=== PATIENT | female | born 1970 | race Caucasian/White ===

== ENCOUNTER 2017-01-04 06:04 | Inpatient (IN) | payer BC ==
[~2017-01-04 06:04] MED LIST: Buffered Lidocaine 0.9% SYRIN* 5 ML/SYR SYRINGE INTRADERM ONE; Famotidine TAB* 20 MG PO ONE; Scopolamine 1.5 mg* PATCH TRANSDERM ONE; Sodium Citrate/Citric Acid* 15 ML UDC PO ONE
[2017-01-04] MEDS ORDERED: Heparin VIAL(*) 5000 UNITS/ML VIAL (FIVE THOUSAND) ONE (06:18)
[2017-01-04] MEDS ORDERED: Famotidine TAB* 20 MG ONE (06:18)
[2017-01-04] MEDS ORDERED: Scopolamine 1.5 mg* PATCH ONE (06:18)
[2017-01-04] MEDS ORDERED: Sodium Citrate/Citric Acid* 15 ML UDC ONE (06:18)
[2017-01-04] MEDS ORDERED: Buffered Lidocaine 0.9% SYRIN* 5 ML/SYR SYRINGE ONE (06:19)
[2017-01-04] MEDS ORDERED: Ciprofloxacin 400MG IVPREMIX(* 400 MG/200 ML BAG ONE (06:19)
[2017-01-04] MEDS ORDERED: Clindamycin 900 MG IVPREMIX(* 900 MG/50 ML SDV IV ONE (06:19)
[2017-01-04] MEDS ORDERED: Methylene Blue 0.5 %* 50 MG/10 ML AMP IV ONE (07:21)
[2017-01-04] MEDS ORDERED: Bupivacaine 0.25% SDV* 30 ML ONE ×2 (07:21→08:30)
[2017-01-04] MEDS ORDERED: fentaNYL* 50 MCG/ML 5 ML VIAL (250 MCG VIAL) ONE ×2 (07:49→10:21)
[2017-01-04] MEDS ORDERED: Ondansetron INJ* 2 MG/ML VIAL ONE (07:50)
[2017-01-04] MEDS ORDERED: Propofol* 10 MG/ML 20 ML BTL IV PUSH ONE (07:50)
[2017-01-04] MEDS ORDERED: Lidocaine 2% PF * 5 ML VIAL ONE (07:50)
[2017-01-04] MEDS ORDERED: Rocuronium* 10 MG/ML VIAL ONE (07:50)
[2017-01-04] MEDS ORDERED: Dexamethasone IV* 4 MG/ML 1 ML (4 MG) ONE (07:50)
[2017-01-04] MEDS ORDERED: Edrophonium Chloride* 10 MG/ML 15 ML VIAL ONE (11:12)
[2017-01-04] MEDS ORDERED: Ketorolac INJ* 30 MG/ML 1 ML VIAL ONE (11:12)
[2017-01-04] MEDS ORDERED: Atropine 1MG/ML INJ* 1 ML VIAL ONE (11:12)
[2017-01-04] MEDS ORDERED: Acetaminophen ADULT LIQ* 650 MG/20.3 ML UDC PO PRN (11:16)
[2017-01-04] MEDS ORDERED: diPHENhydraMINE IV* 50 MG/ML 1 ml VIAL (BENADRYL) SLOW PUSH PRN (11:16)
[2017-01-04] MEDS ORDERED: Ondansetron INJ* 2 MG/ML VIAL IV PRN (11:16)
[2017-01-04] MEDS ORDERED: HYDROcodone/ACET. 7.5/325 LIQ* 15 ML UDC PO PRN (11:16)
--- NOTE | 2017-01-04 11:22 | SURGPN ---
Brief Operative Note - Surgery Procedures: Procedures Pre-OP Diagnoses: Clinically severe obesity Post-op Diagnosis: same Procedure: Laparoscopic Cristóbal an Y gastric bypass Surgeon: Mukesh Asst: Bryon Tubbsthesia: RUTH Calvo EBL: minimal IVF: 1900cc LR Specimen: none Drains: none
[2017-01-04] MEDS ORDERED: DiMENhydriNATE IV* 50 MG/ML VIAL IV PUSH PRN (11:30)
[2017-01-04] MEDS ORDERED: HYDROmorphone INJ* 1 MG/ML CARPUJECT SYRINGE ONE (11:41)
[2017-01-04] MEDS ORDERED: fentaNYL* 50 MCG/ML 2 ML VIAL (100 MCG VIAL) ONE ×2 (11:41→12:09)
[2017-01-04] MEDS: fentaNYL* 50 MCG/ML 2 ML VIAL (100 MCG VIAL) IV PRN ×2 (11:42→12:05)
[2017-01-04] MEDS: HYDROmorphone INJ* 1 MG/ML CARPUJECT SYRINGE IV PRN ×5 (11:43→20:35)
[2017-01-04] MEDS: Heparin VIAL(*) 5000 UNITS/ML VIAL (FIVE THOUSAND) SUBCUT SCH ×2 (14:50→20:37)
[2017-01-04] MEDS: Ketorolac INJ* 30 MG/ML 1 ML VIAL IV PRN (18:35)
[2017-01-04] MEDS: Famotidine IV* 10 MG/ML 2 ML (20 mg) IV SLOW PU SCH (20:36)
[2017-01-05] MEDS: Ketorolac INJ* 30 MG/ML 1 ML VIAL IV PRN ×3 (01:20→22:09)
--- NOTE | 2017-01-05 03:33 | OP ---
CC: Juany Galvan NP * DATE OF OPERATION: 01/04/17 - ROOM #351 DATE OF : 66 SURGEON: Dr. Mayorga. SATELLITE TV TECHNICIAN: JULIO CESAR Slater ANESTHESIOLOGIST: Dr. Calvo. ANESTHESIA: General. PRE-OP DIAGNOSES: 1. Clinically severe obesity. 2. Obstructive sleep apnea. 3. Hypercholesterolemia. 4. Hypertension. POST-OP DIAGNOSES: 1. Clinically severe obesity. 2. Obstructive sleep apnea. 3. Hypercholesterolemia. 4. Hypertension. OPERATIVE PROCEDURE: Laparoscopic Cristóbal-en-Y gastric bypass. ESTIMATED BLOOD LOSS: Minimal. FLUIDS: 1900 cc of crystalloid fluid given. SPECIMENS: None. DRAINS: None. COUNT: Lap pad count and instrument count correct at the end of the procedure. DESCRIPTION OF PROCEDURE: The patient was identified in the preoperative area, brought to the OR, placed on the operating room table in a supine position. Preoperative antibiotics were given. Sequential devices were placed on bilateral lower extremities. General anesthesia was induced and a Doherty catheter was inserted. The patient's abdomen was prepped and draped in a standard surgical fashion and a time-out was performed. Folds of the umbilicus were elevated anteriorly and a Veress needle was inserted into the abdominal cavity which was then allowed to insufflate to a pressure 15 mmHg. The patient tolerated the insufflation well. A trocar was placed at the upper midline just left of midline and a camera was inserted through this. There was no evidence of injury from the trocar insertion or from the Veress needle which was then removed. Additional trocars were then placed in the following positions: a 12 and a 5 mm in the left upper quadrant, a 12 and a 5 mm in the right upper quadrant. Attention was turned towards the omentum, this was attempted to be reflected anteriorly. We identified adhesions in the pelvis, these were taken down with both sharp and blunt dissection as well as electrocautery until we could freely sweep the omentum anteriorly. This allowed us to identify the Ligament of Treitz after retracting the transverse colon anteriorly. From the Ligament of Treitz we counted approximately 40 cm off. This portion of the bowel easily went up towards the liver edge. The bowel was transected at this site. Enterotomy was made on the proximal portion that would become the biliopancreatic limb. Next, approximately 80 cm was counted off from this transected site. This will become the Cristóbal limb. An enterotomy was made and a jejunojejunostomy was created with a 60 mm alba JOSE stapling device. The common defect was reapproximated with 2-0 silk sutures in a [id number] fashion, and the mesenteric defect was similarly closed. Hemostasis was excellent and the closure appeared intact. Attention was then turned towards the stomach. The patient was placed in a steep reverse Trendelenburg. Kylee retractor was inserted through a subxiphoid incision and the liver was retracted anteriorly and to the right, we could see dibbling suggestive of a hiatal hernia. We retracted the fat pad towards the right lower quadrant and with blunt and sharp dissection we were able to expose the left wayne. The right wayne was also identified through the pars flaccida. The hernia appeared to be only fat pad. There was not any discrete mass. Next, at approximately the 3rd crossing vessel a retrogastric tunnel was made. A 45 mm alba JOSE stapling device was fired across this and we completed the gastric pouch with additional 16 mm JOSE stapling device, alba, with a second one which almost completed transected us through the portion of the fat pad and over a 36- Palau[place] OG tube we fired a last firing which was through this fat pad and through some stomach making sure to transect at the fundus. We utilized a 16-mm purple loaded JOSE stapling device with reinforcement. The pouch appeared intact, it was narrow, somewhat long, but only approximately 8 to 9 cm. Next, the Cristóbal limb was then brought in apposition to this. 2-0 silk sutures were utilized to tack the Cristóbal-limb to the gastric pouch. Once this was performed, we were able to make a gastrotomy over the 36 [place] Enriqueta tube and an enterotomy as well. The two were mated in the gastrojejunostomy using a 30- mm alba JOSE stapling device fired to the hub. We noted that the small bowel portion had a bigger incision and for this reason we closed the defect from small bowel to small bowel at this portion and then completed the closure of this anastomosis with small bowel to stomach. Again all this was done with 3-0 silk sutures in a [id number] fashion. Next, the Enriqueta tube was then inserted through the anastomosis and placed distally on the Cristóbal limb. The Cristóbal limb distal to this was clamped and methylene blue dye test was performed with a gauze behind the anastomosis, it showed no evidence of blue dye after dilating this. The blue dye was then removed. The OG tube had been backed into the stomach pouch during the testing of this. This was brought back a little further and 2 additional sutures were placed. There was a small area of the serosa that I wanted to suture, this was done with a U stitch, this was at the distal stomach. Again, it showed no leakage of blue dye and then we imbricated the small bowel portion of the closure of the common defect at this gastrojejunostomy. Once this was performed the Enriqueta tube was then inserted back through the anastomosis with ease. It appeared intact. Hemostasis was excellent. There was no tension on the Cristóbal limb. The OG tube was then removed in its entirety. The omentum was then brought up over the top of the anastomosis and the liver retractor was removed. The abdomen was allowed to collapse. Trocar was removed under direct vision and all 6 skin incisions were reapproximated with skin marlon followed by sterile dressings. Patient was woken up in the OR and transferred to the PACU in stable condition. [id number]/[facility] #: [id number] YAZMIN
[2017-01-05] MEDS: Heparin VIAL(*) 5000 UNITS/ML VIAL (FIVE THOUSAND) SUBCUT SCH ×3 (06:19→21:56)
--- NOTE | 2017-01-05 07:47 | PN ---
Progress Note - Progress Note Date of Service: 01/05/17 SOAP: Subjective: PT seen and examined. upper abdo pain relieved with narcotics. OOB. no nausea Objective: af vss uo good poor insp effort abdo: incisional tenderness dressing intact no calf tenderness Assessment: POD1 RYGB Plan: UGI OOB IVF pain control
--- NOTE | 2017-01-05 10:30 | RAD ---
CPT II Codes: 6045F INDICATION: Status post Cristóbal-en-Y gastric bypass. Fluoroscopic examination of the stomach was performed. Approximately 0.4 minutes of fluoroscopy time was used. Esophagus appears normal in anatomy and function. Patient status post gastric bypass surgery. No extraluminal contrast is noted. There is free flow of contrast into the small intestine. IMPRESSION: No extraluminal contrast is noted. No obstruction is noted.
[2017-01-05] MEDS: Famotidine IV* 10 MG/ML 2 ML (20 mg) IV SLOW PU SCH ×2 (10:48→21:56)
[2017-01-05] MEDS: D5W 1/2 NS KCl 20 Meq 1000 ML* 1,000 ML IV SCH ×2 (14:14→22:11)
[2017-01-06] MEDS: Heparin VIAL(*) 5000 UNITS/ML VIAL (FIVE THOUSAND) SUBCUT SCH (05:21)
[2017-01-06] MEDS: D5W 1/2 NS KCl 20 Meq 1000 ML* 1,000 ML IV SCH (06:12)
[2017-01-06 07:18] VITALS: BP 125/63
[2017-01-06] MEDS: Famotidine IV* 10 MG/ML 2 ML (20 mg) IV SLOW PU SCH (09:05)
--- NOTE | 2017-01-06 09:25 | PN ---
Progress Note - Progress Note Date of Service: 01/06/17 SOAP: Subjective: Patient seen and examined at bedside. Reports doing much better today. Tolerating clear liquids, denies any nausea or vomiting. Ambulatory and wishes to go home. She has no complaints. Objective: Awake and alert, sitting on bed, eating her breakfast. VSS, afebrile, no tachycardia Lungs CTA bilat. Heart RRR, no murmurs Abdomen soft, NT, ND. Dressings removed, incisions C/D/I. No ecchymosis or bleeding. No guarding or rebound. Ext. without edema Assessment: POD#2, s/p laparoscopic RYGB, doing very well. Plan: D/C IVF D/C to home today PPI and resume other meds, only Hyzzar to hold until seen by her PCP F/U next week as outpatient.
--- NOTE | 2017-01-07 03:27 | DS ---
CC: Juany Galvan NP * DISCHARGE SUMMARY: DATE OF ADMISSION: 01/04/17 DATE OF DISCHARGE: 01/06/17 PATIENT OF: Taiwo Mayorga MD ADMITTING PHYSICIAN: Taiwo Mayorga MD * (DICTATED BY JULIO CESAR JONES) ADMISSION DIAGNOSIS: Clinically severe obesity. DISCHARGE DIAGNOSIS: Clinically severe obesity. CONSULTATIONS: None. PROCEDURES: Laparoscopic Cristóbal-En-Y gastric bypass on 01/04/17. BRIEF MEDICAL HISTORY: Mr. Gaytan is a pleasant 46-year-old female, who was seen at the [facility] [place] to consider weight loss surgery. Patient suffered from excess body weight most of her adult life, leading to other comorbidities including sleep apnea and hypertension. She tried multiple dietary and exercise regimen that unfortunately failed to maintain her weight loss. She was found to be a good candidate to proceed with a gastric bypass surgery that was scheduled on a later date. HOSPITAL COURSE: The patient was admitted on 01/04/17 in anticipation for surgery. She was taken to the operating room that day where she underwent a laparoscopic Cristóbal-En-Y gastric bypass by Dr. Mayorga. After recovery, the patient was sent to the surgical floor for observation. She did extremely well with only mild incisional discomfort that was well tolerated using analgesics as needed. She had a followup upper GI on following morning that revealed no evidence of extraluminal contrast for which she started her bariatric stage 1 clear liquid diet. She was ambulatory out of bed and in stable condition. She tolerated her clear liquids very well and continued to improve clinically. On the second day postoperatively, the patient continued to improve and was ready to be discharged home. We went over her medication list and we will hold her Hyzaar for the time being until seen by her primary care physician, but she may continue her Norvasc as prescribed. She will also maintain her PPI coverage using Protonix b.i.d. as instructed. She would be followed up next week as an outpatient. DISCHARGE MEDICATIONS: Include: 1. Albuterol inhaler 108 mcg q. 6 hours as needed for shortness of breath. 2. Norvasc 10 mg p.o. daily. 3. Beclomethasone 80 mcg nasal spray as prescribed. 4. Vitamin D3 2000 units p.o. daily. 5. Nexium 20 mg p.o. b.i.d. 6. Estradiol 25 mg p.o. q. a.m. 7. Melissa 180 mg p.o. q. p.m. 8. Multiple vitamin chewable as instructed. PROBLEM LIST: Clinically severe obesity, status post laparoscopic Cristóbal-En-Y gastric bypass on 01/04/17. JULIO CESAR JONES [id number]/[facility] #: [id number] MTDD
[2017-01-07] MEDS ORDERED: Scopolamine PATCH Remove* 1 NOTE MISC PATCH OFF ONE (06:00)
== END 2017-01-06 11:38 | disposition home or self-care (01) | DRG 403 ==
LOC: AA 06:04 → SSU 14:25
PROVIDERS: ADMIT Surgery; ATTEND Surgery
PROC: 0D164ZA Bypass Stomach to Jejunum, Percutaneous Endoscopic Approach (ICD-10-PCS; principal; 2017-01-04 07:45)
DX: E66.01 Morbid (severe) obesity due to excess calories (principal); E78.00 Pure hypercholesterolemia, unspecified; I10 Essential (primary) hypertension; N39.3 Stress incontinence (female) (male); J45.909 Unspecified asthma, uncomplicated; F41.9 Anxiety disorder, unspecified; F32.9 Major depressive disorder, single episode, unspecified; G47.33 Obstructive sleep apnea (adult) (pediatric); K21.0 Gastro-esophageal reflux disease with esophagitis; K44.9 Diaphragmatic hernia without obstruction or gangrene; Z98.51 Tubal ligation status; Z82.49 Family history of ischemic heart disease and other diseases of the circulatory system; Z80.8 Family history of malignant neoplasm of other organs or systems; Z82.3 Family history of stroke; Z87.891 Personal history of nicotine dependence; Z88.2 Allergy status to sulfonamides; Z88.1 Allergy status to other antibiotic agents; Z88.0 Allergy status to penicillin; Z91.018 Allergy to other foods; Z68.38 Body mass index [BMI] 38.0-38.9, adult
CPT/HCPCS: 43775; 74246; 94760; A9270-GY; J0461; J0744; J1100; J1170; J1644; J1885; J2405; J2704; J3010

== ENCOUNTER 2018-02-09 12:35 | Emergency (ER) | payer OTHER ==
--- OUTSIDE RECORDS SUMMARY | 2018-02-09 12:39 | XMS REPORT | Continuity of Care Document ---
:1970 External Reference #:[id number] Author Name Covert, Phyllis Care Team Providers Name Role Phone Eddie Evangelista MD Primary Care Physician Unavailable Payers Type Date Identification Numbers Payment Provider Subscriber Policy Number: [id number] [employer] Jovani Lukas PayID: [id number] [address] [address] [place] [address] Expires: 2016 Policy Number: [id number] [employer] Ppo Jovani Lukas PayID: [id number] [address] [address] [place] [address] Advance Directives Type Date Description Status Comment Other Directive 11/07/2016 [facility] Care Proxy Current and Verified Problems Date Description Provider Status Onset: 11/07/2016 Gastroesophageal reflux disease Juany Galvan NP Active Onset: 12/01/2017 History of bariatric surgical Eddie Evangelista, Active procedure SEVERIANO Feldman Note: 12/23 Onset: 12/01/2017 Allergic asthma Eddie Evangelista M.D.,SEVERIANO Active Onset: 12/01/2017 Seasonal allergic rhinitis Eddie Evangelista M.D.,SEVERIANO Active Onset: 12/01/2017 Menopausal symptom Eddie Evangelista M.D.,SEVERIANO Active Onset: 12/01/2017 H/O: hysterectomy Eddie Evangelista M.D.,SEVERIANO Active Onset: 12/01/2017 Subtotal thyroidectomy Eddie Evangelista M.D.,SEEVRIANO Active Note: [employer] Onset: 11/07/2016 Sleep apnea Juany Galvan NP Inactive Inactive: 12/01/2017 Onset: 11/07/2016 Essential hypertension Juany Galvan NP Resolved Resolved: 12/01/2017 Onset: 07/25/2016 Difficulty breathing Debbie Caceres MD Resolved Resolved: 12/01/2017 Onset: 11/07/2016 Obesity Juany Galvan NP Resolved Resolved: 12/01/2017 Family History Date Family Member(s) Problem(s) Comments Father Skin Cancer Father Cerebrovascular Accident (CVA) Mother Scleroderma Mother Pulmonary fibrosis Siblings 1 First Sister Skin Cancer Social History Type Date Description Comments Sex Unknown Marital Status Significant Other Lives With Spouse 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 [employer] Tobacco Use Start: Unknown Former Cigarette Smoker End: Unknown Smoking Status Reviewed: 01/11/18 Former Cigarette Smoker ETOH Use 12/01/2017 Occasionally consumes alcohol Tobacco Use Start: Unknown Patient is a former quit 1998, smoked End: Unknown smoker for 15yrs 1PPD Recreational Drug Use Denies Drug Use Exercise Type/Frequency Exercises regularly Allergies, Adverse Reactions, Alerts Date Description Reaction Status Severity Comments 07/25/2016 Sulfa Active anaphylaxis/rash 07/25/2016 Erythromycin Active rash - can take Zithromax 07/25/2016 Keflex Active rash 07/25/2016 Amoxicillin Active rash 07/25/2016 Flagyl Active Medications Medication Date Status Form Strength Qnty SIG Indications Ordering Provider Dulera 12/08/ Active Aerosol 200-5mcg/ 2 puffs bid Eddie 2018 Act Jonh Evangelista M.D.,FACP Estradiol / Active Tablets 1mg 90tab 1 by mouth Eddie 0000 s every day Jonh Evangelista M.D.,FACP Qnasl / Active Aerosol 80mcg/Act 2 J01.90 Unknown 0000 inhalations in each nostril once daily prn Proair HFA / Active Aerosol 108(90Bas 2 puffs by Unknown 0000 e) mouth every mcg/Act 4 hours as needed Opurity / Active Tablets multi-vitami J30.9 Unknown 0000 n, 1 daily Melissa Allergy / Active Tablets 180mg 1 by mouth Unknown 0000 every day Zyrtec Allergy / Active 1 by mouth Unknown 0000 every day alternating with claritin and melissa depending on type of year Claritin / Active Capsules 10mg 1 by mouth Unknown 0000 every day alternating with zyrtec and melissa depending on time of year Caltrate 600+D / Active Tablets 600-800mg take one Unknown 0000 -Unit capsule/tabl et by mouth once daily Clarithromycin 12/08/ Hx Tablets 500mg 14tab 1 by mouth Eddie 2018 - s twice a day Jonh Evangelista, 12/15/ for 7 days M.Jonh,FACP 2018 Azithromycin 05/25/ Hx Tablets 250mg 6tabs take two J20.9 Juany 2018 - tabs then Galvan, 08/27/ one daily [employer] 2018 for the next 4 days Fluconazole 05/25/ Hx Tablets 150mg 2tabs one by mouth J20.9 Juany 2018 - june repeat Galvan, in 3 days as [employer] 2018 needed Azithromycin 03/31/ Hx Tablets 250mg 6tabs take 2 tabs Zsofia 2018 - on day one Moncho, 04/30/ and 1 tabs [employer] 2018 daily for 4 days Guaifenesin-Code 03/28/ Hx Solution 100-10mg/ 118ml take 10 Juany ine 2018 - 5ML milliliters Galvan, 08/27/ by mouth [employer] 2018 every evening with plenty of water as needed for cough for 7 days as needed Melatonin / Hx Capsules 3mg 1 tab by Unknown 0000 - mouth every 05/25/ night at 2018 bedtime prn Hyzaar / Hx Tablets 50-12.5mg 90tab take one Juany 0000 - s tablet by Galvan, 02/13/ mouth every [employer] 2018 morning Norvasc 00/ Hx Tablets 10mg 90tab 1 by mouth Juany 0000 - s every day Galvan, 05/25/ [employer] 2018 Nexium 00/ Hx Capsules 20mg 1 by mouth Unknown 0000 - DR bid 2017 Dulera / Hx 2 puffs Unknown 0000 - daily prn 2017 Zyrtec Allergy 00/ Hx Tablets 10mg 1 by mouth Unknown 0000 - every day 2016 Claritin 00/ Hx Tablets 10mg 1 by mouth Unknown 0000 - every day 2017 Esomeprazole 00/ Hx Capsules 20mg 1 by mouth Unknown Magnesium 0000 - DR daily 2017 Cetirizine HCL / Hx Tablets 10mg Take One J30.9 Unknown 0000 - Tablet as 08/27/ Needed For 2018 Allergies Immunizations CPT Code Status Date Vaccine Reaction Lot # 55078 Given 12/01/2017 Pneumonia Vaccine [id number] Given 12/01/2017 Influenza Virus Vaccine, [id number] Quadrivalent, Split, Preservative Free [id number] Given 11/07/2016 Influenza Virus Vaccine, no immediate reaction, [id number] Quadrivalent, Split, pt tolerated well Preservative Free 62785 Given 10/26/2015 Influenza Virus 3Yrs & Over Vital Signs Date Vital Result Comment 01/11/2018 11:27am Height 69.5 inches 5'9.50" Weight 167.00 lb w/o shoes Heart Rate 74 /min BP Systolic Sitting 152 mmHg BP Diastolic Sitting 96 mmHg BMI (Body Mass Index) 24.3 kg/m2 01/04/2018 2:45pm Height 69.5 inches 5'9.50" Heart Rate 68 /min BP Systolic Sitting 128 mmHg BP Diastolic Sitting 80 mmHg Body Temperature 96.8 F O2 % BldC Oximetry 97 % 12/08/2017 1:25pm Height 69.5 inches 5'9.50" Heart Rate 113 /min BP Systolic Sitting 140 mmHg BP Diastolic Sitting 90 mmHg Body Temperature 101.2 F O2 % BldC Oximetry 95 % 12/01/2017 8:32am Height 69.5 inches 5'9.50" Weight 170.00 lb Heart Rate 75 /min BP Systolic Sitting 120 mmHg BP Diastolic Sitting 80 mmHg BP Systolic Recheck 138 mmHg BP Diastolic Recheck 84 mmHg Body Temperature 96.2 F O2 % BldC Oximetry 98 % BMI (Body Mass Index) 24.7 kg/m2 08/28/2017 9:05am Height 69.5 inches 5'9.50" Weight 170.25 lb Heart Rate 70 /min BP Systolic Sitting 142 mmHg Rue reg cuff BP Diastolic Sitting 90 mmHg Rue reg cuff Respiratory Rate 16 /min O2 % BldC Oximetry 98 % On Ra BMI (Body Mass Index) 24.8 kg/m2 05/25/2017 2:32pm Weight 189.00 lb Heart Rate 100 /min BP Systolic 140 mmHg BP Diastolic 92 mmHg Body Temperature 99.2 F O2 % BldC Oximetry 98 % 05/01/2017 10:44am Height 69 inches 5'9" Weight 187.00 lb Heart Rate 64 /min BP Systolic Sitting 122 mmHg BP Diastolic Sitting 72 mmHg Respiratory Rate 14 /min O2 % BldC Oximetry 99 % BMI (Body Mass Index) 27.6 kg/m2 03/24/2017 1:42pm Weight 206.50 lb Heart Rate 90 /min BP Systolic Sitting 132 mmHg BP Diastolic Sitting 80 mmHg Body Temperature 97.7 F O2 % BldC Oximetry 95 % 02/13/2017 10:22am Weight 221.00 lb Heart Rate 88 /min BP Systolic Sitting 130 mmHg BP Diastolic Sitting 72 mmHg Body Temperature 97.4 F O2 % BldC Oximetry 97 % 11/07/2016 9:13am Height 60 inches 5'0" Weight 255.12 lb Heart Rate 86 /min BP Systolic 128 mmHg BP Diastolic 66 mmHg Body Temperature 98.3 F O2 % BldC Oximetry 96 % BMI (Body Mass Index) 49.8 kg/m2 10/31/2016 1:49pm Height 60 inches 5'0" Weight 254.50 lb Heart Rate 84 /min BP Systolic Sitting 118 mmHg Rue large cuff BP Diastolic Sitting 78 mmHg Rue large cuff Respiratory Rate 16 /min O2 % BldC Oximetry 98 % On Ra BMI (Body Mass Index) 49.7 kg/m2 08/30/2016 10:50am Height 69.5 inches 5'9.50" Weight 256.00 lb Heart Rate 60 /min BP Systolic Sitting 122 mmHg BP Diastolic Sitting 78 mmHg Respiratory Rate 14 /min O2 % BldC Oximetry 98 % BMI (Body Mass Index) 37.3 kg/m2 07/25/2016 10:34am Height 69.5 inches 5'9.50" Weight 256.00 lb Heart Rate 72 /min BP Systolic Sitting 120 mmHg BP Diastolic Sitting 76 mmHg Respiratory Rate 16 /min O2 % BldC Oximetry 98 % room air BMI (Body Mass Index) 37.3 kg/m2 Neck Circumference in inches 15.5 Results Test Date Facility Test Result H/L Range Note Lipid Profile 12/29/2017 [facility] Triglycerides 55 mg/dL 1, 2 (Trig/Chol/HDL) [address] [place] [address] [phone] Cholesterol 154 mg/dL 3 HDL Cholesterol 87.1 mg/dL 4 LDL Cholesterol 56 mg/dL 5 Laboratory test finding 12/29/2017 [facility] Glucose 83 mg/dL N 70-[address] [place] [address] [phone] TSH (Thyroid Stim Horm) 2.36 mcIU/mL N 0.34-5.60 7 Thyroglobulin 12/29/2017 [facility] Thyroglobulin <1.8 IU/mL <4.0 [address] Mark[address] [place] [address] [phone] Thyroglobulin Tumor Marker 11 ng/mL Abnormal 8 Thyroglobulin Interpretation See Comment 9 CBC Auto Diff 12/29/2017 [facility] White Blood 6.1 10^3/uL N 3.5-10.[address] [place] [address] [phone] Red Blood Count 4.42 10^6/uL N 4.00-5.40 Hemoglobin 13.8 g/dL N 12.0-16.0 Hematocrit 41 % N 35-47 Mean Corpuscular Volume 93 fL N 80-97 Mean Corpuscular Hemoglobin 31 pg N 27-31 Mean Corpuscular HGB Conc 34 g/dL N 31-36 Red Cell Distribution Width 12 % N 10.5-15 Platelet Count 312 10^3/uL N 150-450 Mean Platelet Volume 8.2 fL N 7.4-10.4 Abs Neutrophils 2.6 10^3/uL N 1.5-7.7 Abs Lymphocytes 2.8 10^3/uL N 1.0-4.8 Abs Monocytes 0.3 10^3/uL N 0-0.8 Abs Eosinophils 0.3 10^3/uL N 0-0.6 Abs Basophils 0.1 10^3/uL N 0-0.2 Abs Nucleated RBC 0 10^3/uL Granulocyte % 42.0 % N 38-83 Lymphocyte % 46.6 % N 25-47 Monocyte % 4.8 % N 0-7 Eosinophil % 5.7 % N 0-6 Basophil % 0.9 % N 0-2 Nucleated Red Blood Cells % 0 Comp Metabolic Panel 12/29/2017 [facility] Sodium 138 mmol/L N 135-[address] [place] [address] [phone] Potassium 4.0 mmol/L N 3.5-5.0 Chloride 103 mmol/L N 101-111 Co2 Carbon Dioxide 30 mmol/L N 22-32 Anion Gap 5 mmol/L N 2-11 Glucose 81 mg/dL N 70-100 Blood Urea Nitrogen 11 mg/dL N 6-24 Creatinine 0.54 mg/dL N 0.51-0.95 BUN/Creatinine Ratio 20.4 High 8-20 Calcium 9.3 mg/dL N 8.6-10.3 Total Protein 6.7 g/dL N 6.4-8.9 Albumin 3.8 g/dL N 3.2-5.2 Globulin 2.9 g/dL N 2-4 Albumin/Globulin Ratio 1.3 N 1-3 Total Bilirubin 0.70 mg/dL N 0.2-1.0 Alkaline Phosphatase 77 U/L N 34-104 Alt 17 U/L N 7-52 Ast 15 U/L N 13-39 Egfr Non- 120.0 >60 Egfr 145.2 >60 10 Iron & Iron Binding 12/29/2017 [facility] Iron 169 g/dL N 50 -[address] [place] [address] [phone] Unsaturated Iron Binding 212 g/dL Total Iron Binding Capacity 381 g/dL N 250-450 Transferrin 272 mg/dL N 203-362 % Iron Saturation 44 % N 15-55 Laboratory test 12/29/2017 [facility] Folic Acid > 20.00 > 3.[address] (Folate) ng/[place] [address] [phone] Vitamin B12 496 pg/mL N 180-914 11 Vitamin D Total 25(Oh) 47.0 ng/mL N 20-50 Ferritin 51.3 ng/mL N 11-307 Vitamin B1 (Whole Blood) 160 nmol/L 70-180 12 Vitamin E Level 10.5 mg/L 5.5 - 17.0 13 PTH Related Peptide 0.4 pmol/L <2.0 14 CBC Auto Diff 10/02/2017 [facility] White Blood 6.2 10^3/uL N 3.5-10.[address] [place] [address] [phone] Red Blood Count 4.22 10^6/uL N 4.00-5.40 Hemoglobin 13.6 g/dL N 12.0-16.0 Hematocrit 40 % N 35-47 Mean Corpuscular Volume 95 fL N 80-97 Mean Corpuscular Hemoglobin 32 pg High 27-31 Mean Corpuscular HGB Conc 34 g/dL N 31-36 Red Cell Distribution Width 12 % N 10.5-15 Platelet Count 279 10^3/uL N 150-450 Mean Platelet Volume 8.3 um3 N 7.4-10.4 Abs Neutrophils 2.6 10^3/uL N 1.5-7.7 Abs Lymphocytes 2.7 10^3/uL N 1.0-4.8 Abs Monocytes 0.3 10^3/uL N 0-0.8 Abs Eosinophils 0.5 10^3/uL N 0-0.6 Abs Basophils 0 10^3/uL N 0-0.2 Abs Nucleated RBC 0 10^3/uL Granulocyte % 41.8 % N 38-83 Lymphocyte % 44.5 % N 25-47 Monocyte % 4.8 % N 0-7 Eosinophil % 8.1 % High 0-6 Basophil % 0.8 % N 0-2 Nucleated Red Blood Cells % 0.1 Comp Metabolic Panel 10/02/2017 [facility] Sodium 142 mmol/L N 135-145 [address] [place] [address] [phone] Potassium 4.1 mmol/L N 3.5-5.0 Chloride 107 mmol/L N 101-111 Co2 Carbon Dioxide 30 mmol/L N 22-32 Anion Gap 5 mmol/L N 2-11 Glucose 84 mg/dL N 70-100 Blood Urea Nitrogen 13 mg/dL N 6-24 Creatinine 0.61 mg/dL N 0.51-0.95 BUN/Creatinine Ratio 21.3 High 8-20 Calcium 9.0 mg/dL N 8.6-10.3 Total Protein 6.4 g/dL N 6.4-8.9 Albumin 3.7 g/dL N 3.2-5.2 Globulin 2.7 g/dL N 2-4 Albumin/Globulin Ratio 1.4 N 1-3 Total Bilirubin 0.50 mg/dL N 0.2-1.0 Alkaline Phosphatase 71 U/L N 34-104 Alt 14 U/L N 7-52 Ast 13 U/L N 13-39 Egfr Non- 104.2 >60 Egfr 126.1 >60 15 Iron & Iron Binding 10/02/2017 [facility] Iron 113 g/dL N 50 -[address] [place] [address] [phone] Unsaturated Iron Binding 250 g/dL Total Iron Binding Capacity 363 g/dL N 250-450 Transferrin 259 mg/dL N 203-362 % Iron Saturation 31 % N 15-55 Laboratory test 10/02/2017 [facility] Ferritin 42.6 ng/mL N 11 -307 16 finding [address] [place] [address] [phone] Folic Acid (Folate) > 20.00 ng/mL >3.99 17 Vitamin B12 321 pg/mL N 180-914 18 Vitamin D Total 25(Oh) 43.8 ng/mL N 20-50 19 Vitamin B1 (Whole Blood) 202 nmol/L Abnormal 70-180 20 Vitamin E Level 9.9 mg/L 5.5 - 17.0 21 Laboratory test 07/05/2017 [facility] Ferritin 38.6 ng/mL N 11 -307 finding [address] [place] [address] [phone] Folic Acid (Folate) > 20.00 ng/mL >3.99 Vitamin B12 294 pg/mL N 180-914 22 Vitamin D Total 25(Oh) 42.0 ng/mL N 20-50 Vitamin B1 (Whole Blood) 198 nmol/L Abnormal 70-180 23 Vitamin E Level 9.7 mg/L 5.5 - 17.0 24 Iron & Iron Binding 07/05/2017 [facility] Iron 81 g/dL N 50- 212 [address] [place] [address] [phone] Unsaturated Iron Binding 266 g/dL Total Iron Binding Capacity 347 g/dL N 250-450 Transferrin 248 mg/dL N 203-362 % Iron Saturation 23 % N 15-55 Comp Metabolic Panel 07/05/2017 [facility] Sodium 142 mmol/L N 139-145 [address] [place] [address] [phone] Potassium 4.3 mmol/L N 3.5-5.0 Chloride 110 mmol/L N 101-111 Co2 Carbon Dioxide 28 mmol/L N 22-32 Anion Gap 4 mmol/L N 2-11 Glucose 94 mg/dL N 70-100 Blood Urea Nitrogen 12 mg/dL N 6-24 Creatinine 0.56 mg/dL N 0.51-0.95 BUN/Creatinine Ratio 21.4 High 8-20 Calcium 9.2 mg/dL N 8.6-10.3 Total Protein 6.2 g/dL Low 6.4-8.9 Albumin 3.6 g/dL N 3.2-5.2 Globulin 2.6 g/dL N 2-4 Albumin/Globulin Ratio 1.4 N 1-3 Total Bilirubin 0.50 mg/dL N 0.2-1.0 Alkaline Phosphatase 72 U/L N 34-104 Alt 13 U/L N 7-52 Ast 12 U/L Low 13-39 Egfr Non- 115.5 >60 Egfr 148.6 >60 25 CBC Auto Diff 07/05/2017 [facility] White Blood 6.4 10^3/uL N 3.5-10.[address] [place] [address] [phone] Red Blood Count 4.40 10^6/uL N 4.0-5.4 Hemoglobin 13.9 g/dL N 12.0-16.0 Hematocrit 41 % N 35-47 Mean Corpuscular Volume 94 fL N 80-97 Mean Corpuscular Hemoglobin 32 pg High 27-31 Mean Corpuscular HGB Conc 34 g/dL N 31-36 Red Cell Distribution Width 14 % N 10.5-15 Platelet Count 268 10^3/uL N 150-450 Mean Platelet Volume 8.5 um3 N 7.4-10.4 Abs Neutrophils 2.3 10^3/uL N 1.5-7.7 Abs Lymphocytes 3.2 10^3/uL N 1.0-4.8 Abs Monocytes 0.3 10^3/uL N 0-0.8 Abs Eosinophils 0.6 10^3/uL N 0-0.6 Abs Basophils 0.1 10^3/uL N 0-0.2 Abs Nucleated RBC 0 10^3/uL Granulocyte % 35.7 % Low 38-83 Lymphocyte % 49.4 % High 25-47 Monocyte % 4.3 % N 0-7 Eosinophil % 9.8 % High 0-6 Basophil % 0.8 % N 0-2 Nucleated Red Blood Cells % 0.1 CBC No Diff 12/26/2016 [facility] White Blood 7.5 10^3/uL N 3.5-10.[address] [place] [address] [phone] Red Blood Count 4.53 10^6/uL N 4.0-5.4 Hemoglobin 14.3 g/dL N 12.0-16.0 Hematocrit 42 % N 35-47 Mean Corpuscular Volume 92 fL N 80-97 Mean Corpuscular Hemoglobin 32 pg High 27-31 Mean Corpuscular HGB Conc 34 g/dL N 31-36 Red Cell Distribution Width 12 % N 10.5-15 Platelet Count 338 10^3/uL N 150-450 Mean Platelet Volume 8 um3 N 7.4-10.4 Basic Metabolic Panel 12/26/2016 [facility] Sodium 134 mmol/L N 133-[address] [place] [address] [phone] Potassium 4.4 mmol/L N 3.5-5.0 Chloride 100 mmol/L Low 101-111 Co2 Carbon Dioxide 29 mmol/L N 22-32 Anion Gap 5 mmol/L N 2-11 Glucose 89 mg/dL N 70-100 Blood Urea Nitrogen 13 mg/dL N 6-24 Creatinine 0.66 mg/dL N 0.51-0.95 BUN/Creatinine Ratio 19.7 N 8-20 Calcium 9.8 mg/dL N 8.6-10.3 Egfr Non- 95.6 >60 Egfr 122.9 >60 26 1 FASTING 10 HOUR 2 Desirable: <150 Borderline High: 150-199 High: 200-499 Very High: >500 3 Desirable: <200 Borderline High: 200-239 High: >239 4 Low: <40 Desirable: 40-60 High: >60 5 Desirable: <100 Near Optimal: 100-129 Borderline High: 130-159 High: 160-189 Very High: >189 6 FASTING 10 HOUR 7 FASTING 10 HOUR 8 REFERENCE VALUE Athyrotic <0.1 Intact Thyroid <=33 9 Thyroglobulin (Tg) levels must be interpreted in the context of TSH levels, serial Tg measurements and radioiodine ablation status. Tg levels of > or=10 ng/mL in athyrotic individuals on suppressive therapy indicate a significant (>25%) risk of clinically detectable recurrent papillary/follicular thyroid cancer. ADDITIONAL INFORMATION PLEASE NOTE: Thyroglobulin flagging is based on athyrotic reference values. The thyroglobulin and thyroglobulin antibody testing methods are immunoenzymatic assays manufactured by [employer] and performed on the [employer] DXI 800. Values obtained from different assay methods or kits may be different and cannot be used interchangeably. The results cannot be interpreted as absolute evidence for the presence or absence of malignant disease. Test Performed by: [facility] [place] [address] 10 Because ethnic data is not always readily available, this report includes an eGFR for both -Americans and non- Americans. The National Kidney Disease Education Program (NKDEP) does not endorse the use of the MDRD equation for patients that are not between the ages of 18 and 70, are , have extremes of body size, muscle mass, or nutritional status, or are non- or non-. According to the National Kidney Foundation, irrespective of diagnosis, the stage of the disease is based on the level of kidney function: Stage Description GFR(mL/min/1.73 m(2)) 1 Kidney damage with normal or decreased GFR 90 2 Kidney damage with mild decrease in GFR 60-89 3 Moderate decrease in GFR 30-59 4 Severe decrease in GFR 15-29 5 Kidney failure <15 (or dialysis) 11 Normal Range 180 to 914 Indeterminate Range 145 to 180 Deficient Range <145 12 ADDITIONAL INFORMATION This test was developed and its performance characteristics determined by [facility] in a manner consistent with CLIA requirements. This test has not been cleared or approved by the U.S. Food and Drug Administration. Test Performed by: [facility] [place] [address] 13 ADDITIONAL INFORMATION This test was developed and its performance characteristics determined by [facility] in a manner consistent with CLIA requirements. This test has not been cleared or approved by the U.S. Food and Drug Administration. Test Performed by: [facility] [place] - [address] [address] 14 ADDITIONAL INFORMATION This test was developed and its performance characteristics determined by [facility] in a manner consistent with CLIA requirements. This test has not been cleared or approved by the U.S. Food and Drug Administration. Test Performed by: [facility] [place] - [address] [address] 15 Because ethnic data is not always readily available, this report includes an eGFR for both -Americans and non- Americans. The National Kidney Disease Education Program (NKDEP) does not endorse the use of the MDRD equation for patients that are not between the ages of 18 and 70, are , have extremes of body size, muscle mass, or nutritional status, or are non- or non-. According to the National Kidney Foundation, irrespective of diagnosis, the stage of the disease is based on the level of kidney function: Stage Description GFR(mL/min/1.73 m(2)) 1 Kidney damage with normal or decreased GFR 90 2 Kidney damage with mild decrease in GFR 60-89 3 Moderate decrease in GFR 30-59 4 Severe decrease in GFR 15-29 5 Kidney failure <15 (or dialysis) 16 FASTING 17 FASTING 18 Normal Range 180 to 914 Indeterminate Range 145 to 180 Deficient Range <145 19 FASTING 20 ADDITIONAL INFORMATION This test was developed and its performance characteristics determined by [facility] in a manner consistent with CLIA requirements. This test has not been cleared or approved by the U.S. Food and Drug Administration. Test Performed by: [facility] - [address] [address] 21 ADDITIONAL INFORMATION This test was developed and its performance characteristics determined by [facility] in a manner consistent with CLIA requirements. This test has not been cleared or approved by the U.S. Food and Drug Administration. Test Performed by: [facility] - [address] [address] 22 Normal Range 180 to 914 Indeterminate Range 145 to 180 Deficient Range <145 23 ADDITIONAL INFORMATION This test was developed and its performance characteristics determined by [facility] in a manner consistent with CLIA requirements. This test has not been cleared or approved by the U.S. Food and Drug Administration. Test Performed by: [facility] - [address] [address] 24 ADDITIONAL INFORMATION This test was developed and its performance characteristics determined by [facility] in a manner consistent with CLIA requirements. This test has not been cleared or approved by the U.S. Food and Drug Administration. Test Performed by: [facility] - [address] [address] 25 Because ethnic data is not always readily available, this report includes an eGFR for both -Americans and non- Americans. The National Kidney Disease Education Program (NKDEP) does not endorse the use of the MDRD equation for patients that are not between the ages of 18 and 70, are , have extremes of body size, muscle mass, or nutritional status, or are non- or non-. According to the National Kidney Foundation, irrespective of diagnosis, the stage of the disease is based on the level of kidney function: Stage Description GFR(mL/min/1.73 m(2)) 1 Kidney damage with normal or decreased GFR 90 2 Kidney damage with mild decrease in GFR 60-89 3 Moderate decrease in GFR 30-59 4 Severe decrease in GFR 15-29 5 Kidney failure <15 (or dialysis) 26 Because ethnic data is not always readily available, this report includes an eGFR for both -Americans and non- Americans. The National Kidney Disease Education Program (NKDEP) does not endorse the use of the MDRD equation for patients that are not between the ages of 18 and 70, are , have extremes of body size, muscle mass, or nutritional status, or are non- or non-. According to the National Kidney Foundation, irrespective of diagnosis, the stage of the disease is based on the level of kidney function: Stage Description GFR(mL/min/1.73 m(2)) 1 Kidney damage with normal or decreased GFR 90 2 Kidney damage with mild decrease in GFR 60-89 3 Moderate decrease in GFR 30-59 4 Severe decrease in GFR 15-29 5 Kidney failure <15 (or dialysis) Procedures Date Code Description Status 07/15/2017 23974 Polysomnography Sleep Staging 4+ Parameters Completed 05/09/2017 47463 Sleep Study Unattended,HRT Rate,Oxygen Sat,Resp Completed Effort/Airflow 12/26/2016 75338 EKG, Interpretation Only Completed 08/01/2016 69455 Sleep Study Unattended,HRT Rate,Oxygen Sat,Resp Completed Effort/Airflow 05/21/2015 [id number] Mammogram Completed Encounters Type Date Location Provider Dx Diagnosis Office Visit 12/08/2017 [facility] Eddie Borja J18.1 Lobar pneumonia, 1:40p Medicine Bailee Evangelista M.D.,FACP [address] Rd organism J45.41 Moderate persistent asthma with (acute) exacerbation Office Visit 12/01/2017 8:40a [facility] Raymond Borja I10 Essential ( primary) Medicine Bailee Evangelista M.D.,FACP hypertension [address] J45.20 Mild intermittent asthma, uncomplicated Z98.84 Bariatric surgery status Z23 Encounter for immunization Z68.24 Body mass index (BMI) 24.0-24.9, adult Office Visit 08/28/2017 [facility] Lilly G47.33 Obstructive sleep 9:15a [facility], RN, apnea (adult) [facility] [employer] 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 [employer]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) J45.20 Mild intermittent asthma, uncomplicated Z98.84 Bariatric surgery status Z68.24 Body mass index (BMI) 24.0-24.9, adult Office Visit 05/25/2017 2:20p [facility] Juany J20.9 Acute bronchitis , Medicine - [place], 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 [address] R05 Cough I10 Essential (primary) hypertension Office Visit 05/01/2017 10:45a [facility]monology And Debbie G47.33 Obstructive sleep [facility] Nicki apnea (adult) [facility] (pediatric) J45.20 Mild intermittent asthma, uncomplicated Office Visit 03/24/2017 1:40p [facility] Zsofia Moncho, 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, 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 [address] J30.9 Allergic rhinitis, unspecified Office Visit 02/13/2017 10:10a [facility] Juany I10 Essential (primary ) 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[place], 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 [address] Z98.84 Bariatric surgery status Office Visit 11/07/2016 9:30a [facility] Juany I10 Essential (primary ) 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[place], 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 [address] Z23 Encounter for immunization Z12.31 Encntr screen mammogram for malignant neoplasm of breast E66.9 Obesity, unspecified Office Visit 10/31/2016 1:45p [facility] Debbie G47.33 Obstructive sleep [facility] apnea (adult) [facility] (pediatric) E66.09 Other obesity due to excess calories Z68.42 Body mass index (BMI) 45.0-49.9, adult Office Visit 08/30/2016 10:45a [facility]ology [facility] Debbie G47.33 Obstructive sleep [facility] apnea (adult) [facility] (pediatric) E66.09 Other obesity due to excess calories Z68.37 Body mass index (BMI) 37.0-37.9, adult Office Visit 07/25/2016 10:15a [facility] Debbiesade Caceres, R06.83 [facility] R40.0 Somnolence K21.9 Gastro-esophageal reflux disease without esophagitis 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
[2018-02-09 12:44] VITALS: BP 142/87
--- NOTE | 2018-02-09 13:02 | UC ---
Respiratory Complaint HPI - HPI Summary HPI Summary: 47 yo female presents with sinus pain/pressure/congestion and post nasal drip for the last 1.5 weeks. She says that she has a history of issues with her sinuses and is requesting treatment today. She uses a nasal spray, but says recently the spray goes up her nose and drips right out due to congestion and swelling. Denies fever, chills, cough, sore throat. - History of Current Complaint Chief Complaint: UCRespiratory Stated Complaint: SORE THROAT, COUGH Time Seen by Provider: 02/09/18 13:02 Hx Obtained From: Patient Hx Last Menstrual Period: hysterectomy Onset/Duration: Gradual Onset Severity Initially: Mild Severity Currently: Moderate Pain Intensity: 5 Pain Scale Used: 0-10 Numeric - Allergies/Home Medications Allergies/Adverse Reactions: Allergies Allergy/AdvReac Type Severity Reaction Status Date / Time erythromycin base Allergy Rash Verified 02/09/18 12:39 metronidazole [From Flagyl] Allergy Rash Verified 02/09/18 12:39 Penicillins Allergy Rash Verified 02/09/18 12:39 Sulfa (Sulfonamide Allergy anaph Verified 02/09/18 12:39 Antibiotics) PMH/Surg Hx/FS Hx/Imm Hx Respiratory History: Asthma - Surgical History Surgical History: Yes Surgery Procedure, Year, and Place: hysterectomy, tmj, [facility], tubal ligation, csection, d&c, sinus rhinoplasty, thyroid,nick y - Family History Known Family History: Positive: Other - scleraderma in mother - Social History Occupation: Employed Full-time Lives: With Family Alcohol Use: Occasionally Substance Use Type: None Smoking Status (MU): Former Smoker Type: Cigarettes Amount Used/How Often: 1/2 ppd for 15 yrs When Did the Patient Quit Smoking/Using Tobacco: 1998 - Immunization History Most Recent Influenza Vaccination: 2017 Most Recent Pneumonia Vaccination: never Hx Tetanus, Diphtheria Vaccination: Yes - no flu this year Review of Systems All Other Systems Reviewed And Are Negative: Yes Constitutional: Positive: Negative Skin: Positive: Negative Eyes: Positive: Negative ENT: Positive: Nasal Discharge, Sinus Congestion, Sinus Pain/Tenderness Respiratory: Positive: Negative Cardiovascular: Positive: Negative Gastrointestinal: Positive: Negative Neurovascular: Positive: Negative Neurological: Positive: Negative Psychological: Positive: Negative Physical Exam - Summary Physical Exam Summary: GENERAL: NAD. WDWN. No pain distress. SKIN: No rashes, sores, lesions, or open wounds. HEENT: Head: AT/NC Eyes: EOM intact. Conjunctiva clear without inflammation or discharge. Ears: Hearing grossly normal. TMs intact, no bulging, erythema, or edema. Nose: Nasal mucosa moderately swollen and erythematous without discharge. TTP maxillary and frontal sinus. Positive post nasal drip Throat: Posterior oropharynx without exudates, erythema, or tonsillar enlargement. Uvula midline. NECK: Supple. Nontender. No lymphadenopathy. CHEST: CTAB. No r/r/w. No accessory muscle use. Breathing comfortably and in no distress. CV: RRR. Without m/r/g. Pulses intact. NEURO: Alert. PSYCH: Age appropriate behavior. Triage Information Reviewed: Yes Vital Signs: Initial Vital Signs Temp 97.6 F 02/09/18 12:41 Pulse 78 02/09/18 12:41 Resp 16 02/09/18 12:41 BP 142/87 02/09/18 12:41 Pulse Ox 97 02/09/18 12:41 Vital Signs Reviewed: Yes UC Diagnostic Evaluation - Laboratory O2 Sat by Pulse Oximetry: 97 Respiratory Course/Dx - Course Course Of Treatment: Sinusitis pt says that zpak usually works well for her sinus infections. - Differential Dx/Diagnosis Provider Diagnosis: Sinusitis Discharge - Sign-Out/Discharge Documenting (check all that apply): Patient Departure All imaging exams completed and their final reports reviewed: No Studies - Discharge Plan Condition: Stable Disposition: HOME Prescriptions: Azithromycin TAB* [Zithromax TAB (Z-KEKE) 250 mg #6 tabs] 2 tab PO .TODAY, THEN 1 DAILY #1 keke Patient Education Materials: Sinusitis (ED) Referrals: Eddie Evangelista MD [Primary Care Provider] - Additional Instructions: If you develop a fever, shortness of breath, chest pain, new or worsening symptoms - please call your PCP or go to the ED. Your blood pressure was high at todays visit. Please see your primary provider within 4 weeks for recheck and re-evaluation. - Billing Disposition and Condition Condition: STABLE Disposition: Home
== END 2018-02-09 13:18 | disposition home or self-care (01) ==
LOC: UCEAST 12:35
DX: J32.9 Chronic sinusitis, unspecified (principal); J45.909 Unspecified asthma, uncomplicated; Z88.1 Allergy status to other antibiotic agents; Z88.0 Allergy status to penicillin; Z88.2 Allergy status to sulfonamides; Z87.891 Personal history of nicotine dependence
CPT/HCPCS: 99212; G0463